=== PATIENT | male | born 1995 | race Caucasian/White ===

== ENCOUNTER 2019-10-31 16:14 | Inpatient (IN) | payer OTHER ==
[~2019-10-31] VITALS: Ht 175.3 cm; Wt 72.1 kg
[2019-10-31 16:20] VITALS: Ht 175.3 cm; Wt 72.1 kg
[2019-10-31 17:14] LABS: BASOPHIL % 0.1 % (0-2); PLATELET COUNT 164 x10^3mcL (130-400); RED CELL DISTRIBUTION WIDTH 13.4 % (11.5-14.5)
[2019-10-31 17:48] LABS: CALCIUM 9.1 mg/dL (8.5-10.1); CARBON DIOXIDE 27.2 mmol/L (21-32); CHLORIDE SERUM 100 mmol/L (98-107); CREATININE SERUM 1.1 mg/dL (0.7-1.3); GFR1 > 60 mL/min; GLUCOSE SERUM 106 mg/dL (74-106); POTASSIUM SERUM 3.7 mmol/L (3.5-5.1); SODIUM SERUM 138 mmol/L (136-145)
[2019-10-31 17:52] LABS: ALBUMIN 4.4 g/dL (3.4-5.0); ALKALINE PHOSPHATASE 61 U/L (46-116); ALT/SGPT 49 U/L (16-63); AST/SGOT 32 U/L (15-37); BILIRUBIN TOTAL 0.3 mg/dL (0.20-1.00); LIPASE 67 IU/L (73-393); TOTAL PROTEIN, SERUM 7.8 g/dL (6.4-8.2)
[2019-10-31 17:54] LABS: microscopic required? YES; urine erythrocyte 2+ (NEGATIVE)
[2019-10-31] MEDS ORDERED: XAN1 PO (17:57)
[2019-10-31 18:13] LABS: AMPHETAMINE QUAL UR NONE DETECTED (See below)
[2019-10-31 19:57] LABS: CHOLESTEROL/HDL RATIO 3.4
[2019-10-31 19:59] LABS: FREE T4 1.02 ng/dL (0.76-1.46); FREE THYROXINE INDEX 2.6 ug/dL (1.4-4.5); T4(THYROXINE) 7.5 ug/dL (4.7-13.3)
[2019-10-31 20:00] LABS: T3 TOTAL 1.41 ng/mL
[2019-10-31 21:38] VITALS: BP 143/73
[2019-11-01 05:56] VITALS: BP 127/75
[2019-11-01 07:42] LABS: BASOPHIL % 0.1 % (0-2); PLATELET COUNT 132 x10^3mcL (130-400); RED CELL DISTRIBUTION WIDTH 13.2 % (11.5-14.5)
[2019-11-01 07:44] LABS: CALCIUM 8.9 mg/dL (8.5-10.1); CARBON DIOXIDE 27.8 mmol/L (21-32); CHLORIDE SERUM 104 mmol/L (98-107); GFR1 > 60 mL/min; GLUCOSE SERUM 101 mg/dL (74-106); PHOSPHOROUS 3.2 mg/dL (2.5-4.9); POTASSIUM SERUM 3.9 mmol/L (3.5-5.1); SODIUM SERUM 140 mmol/L (136-145)
[2019-11-01 07:56] VITALS: BP 130/73
[2019-11-01 12:31] VITALS: BP 129/78
[2019-11-01 17:07] VITALS: BP 122/71
[2019-11-01 18:41] VITALS: BP 122/72
== END 2019-11-01 19:51 | disposition home or self-care (01) | DRG 101 ==
LOC: ED 16:14 → DU 18:46
PROVIDERS: Emergency Medicine; ADMIT Family Medicine; ATTEND Family Medicine
DX: R56.9 Unspecified convulsions (principal); G89.29 Other chronic pain; M54.9 Dorsalgia, unspecified; T42.4X5A Adverse effect of benzodiazepines, initial encounter; F19.10 Other psychoactive substance abuse, uncomplicated; F12.10 Cannabis abuse, uncomplicated; Y92.89 Other specified places as the place of occurrence of the external cause
CPT/HCPCS: 83880; 84439; G0378; J1885; J2405; J3490; J7030; Q0092